=== PATIENT | male | born 1970 | race Caucasian/White ===

== ENCOUNTER 2018-10-07 05:05 | Emergency (ER) | payer SELFPAY ==
[~2018-10-07] VITALS: Ht 193 cm; Wt 100.0 kg
[2018-10-07 05:07] VITALS: BP 181/118
[2018-10-07] MEDS ORDERED: morphine 4 MG/ML inj SYRINge IM ONE (05:40)
[2018-10-07] MEDS ORDERED: acetaminophen 325mg tablet PO ONE (05:40)
[2018-10-07] MEDS ORDERED: ketorolac trometh inj. 60 MG/2 ML VIAL IM ONE (07:50)
[2018-10-07] MEDS ORDERED: HYDR-3965 PO (08:34)
[2018-10-07] MEDS ORDERED: CYCL-1 PO (08:34)
== END 2018-10-07 08:50 | disposition home or self-care (01) ==
LOC: ER 05:06
DX: M54.31 Sciatica, right side (principal); M79.604 Pain in right leg; G89.29 Other chronic pain
CPT/HCPCS: 93971; 96372; 99284; J1885; J2270